=== PATIENT | female | born 1985 | race Caucasian/White ===

== ENCOUNTER 2016-08-03 08:05 | Inpatient (IN) | payer BC ==
[2016-07-22 14:16] VITALS: BMI 42.0
[2016-07-22 14:24] LABS: BASO % 0.1 %; BASO ABS # 0.01 K/uL (0-0.2); COMPLETE YES; EOS % 2.2 %; HEMATOCRIT 38.5 % (37-47); LYMPH % 31.1 %; LYMPH ABS # 2.11 K/uL (1.2-3.4); MEAN CELL VOLUME 89.7 fL (80-100); MEAN CORPUSCULAR HEMOGLOBIN 31.7 pg (25-34); MEAN CORPUSCULAR HGB CONC 35.3 g/dl (32-36); MEAN PLATELET VOLUME 9.4 fL (7.4-10.4); MONO % 5.7 %; NEUT % 60.9 %; PLATELET COUNT 253 K/uL (130-400); RED BLOOD COUNT 4.29 M/uL (4.2-5.4); WHITE BLOOD COUNT 6.79 K/uL (4.8-10.8)
[2016-07-22 14:50] LABS: BUN/CREATININE RATIO 10.8 (10-20); CALCIUM 8.9 mg/dl (8.5-10.1); CREATININE 0.83 mg/dl (0.60-1.20); POTASSIUM 3.8 mmol/L (3.5-5.1)
--- NOTE | 2016-07-22 14:53 | PAT Medication Instructions ---
Service Date Jul 22, 2016. Current Home Medication List Alprazolam (Xanax), 0.5 MG PO Q8H PRN for Anxiety Escitalopram Oxalate (Lexapro), 15 MG PO QAM Oxycodone/Acetaminophen 10MG/325MG (Percocet 10MG/325MG), 1 TAB PO q4-6 PRN for Pain Oxymorphone Hcl (Opana Er (Crush Resistant), 40 MG PO Q12 [Headache Medicine ] Medication Instructions For Your Scheduled Surgery [Headache Medicine]- Please call PAT department with name and dose of medication. - Take the following medications the morning of surgery with a sip of water: Oxymorphone Hcl (Opana Er (Crush Resistant), 40 MG PO Q12 Oxycodone/Acetaminophen 10MG/325MG (Percocet 10MG/325MG), 1 TAB PO q4-6 PRN for Pain Escitalopram Oxalate (Lexapro), 15 MG PO QAM Alprazolam (Xanax), 0.5 MG PO Q8H PRN for Anxiety - Take the following medications as scheduled the night before surgery: Oxymorphone Hcl (Opana Er (Crush Resistant), 40 MG PO Q12 Oxycodone/Acetaminophen 10MG/325MG (Percocet 10MG/325MG), 1 TAB PO q4-6 PRN for Pain Alprazolam (Xanax), 0.5 MG PO Q8H PRN for Anxiety If you have any questions please call us at [phone] (Tanvi Woodruff PA-C) or [phone] or [phone]
[2016-07-22 15:55] LABS: URINE APPEARANCE CLEAR (CLEAR); URINE BILIRUBIN NEG (NEG); URINE COLOR YELLOW; URINE NITRITE NEG (NEG); URINE SPECIFIC GRAVITY 1.007 (1.000-1.030); UROBILINOGEN NEG (NEG)
[2016-07-22 16:02] LABS: MANUAL MICROSCOPIC REQUIRED? NO; REVIEW REQ? NO
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
[~2016-08-03] VITALS: Ht 162.6 cm; Wt 111.0 kg
[2016-08-03] VITALS (9 sets, daily range): BP systolic 91–126; BP diastolic 59–85; PULSE 55–76; TEMP 36.4–36.8; O2SAT 91–98; Ht 162.6 cm; Wt 111.0 kg
--- NOTE | 2016-08-03 07:19 | History & Physical Bridge Note ---
H&P Re-Evaluation Bridge Note: I have examined the patient, reviewed the History & Physical and in the interval since the performance of the History & Physical I have noted the following changes of clinical significance: No changes noted
[~2016-08-03 08:05] MED LIST: ALPR-411 PO; CEFAZOLIN 2000 MG/60 ML D5W IV SCH; ESCI1TAB10 PO; HEADACHE MEDICINE; LACTATED RINGER'S 1000ML 1,000 ML IV SCH; OXYC-106 PO; OXYM1TAB PO
[2016-08-03] MEDS ORDERED: SUMA100T16 PO (08:45)
[2016-08-03] MEDS ORDERED: ONDANSETRON INJ 2 MG/ML 2 ML VIAL ONE (08:53)
[2016-08-03] MEDS ORDERED: MIDAZOLAM HCL 1 MG/ML 2ML VIAL ONE (08:53)
[2016-08-03] MEDS ORDERED: HYDROmorphone INJ 2 MG/ML SYR/VIAL ONE (08:53)
[2016-08-03] MEDS ORDERED: ROCURONIUM BROMIDE 10 MG/ML 5 ML VIAL ONE (08:53)
[2016-08-03] MEDS ORDERED: DEXAMETHASONE SOD INJ 4 MG/ML VIAL ONE (08:53)
[2016-08-03] MEDS ORDERED: FENTANYL CITRATE INJ 50 MCG/1 ML 2 ML VIAL ONE (08:53)
[2016-08-03] MEDS ORDERED: SODIUM CHLORIDE 0.9% INJ 10 ML VIAL ONE (08:56)
[2016-08-03 08:58] LABS: PREG INTERNAL NEGATIVE QC NEG CLEAR BACKGROUND; PREG INTERNAL POSITIVE QC POS CONTROL LINE
[2016-08-03] MEDS ORDERED: CEFAZOLIN IV 2,000 MG/60 ML D5W IV ONE (09:17)
[2016-08-03] MEDS ORDERED: PHENYLEPHRINE 100MCG/ML 5ML SYR ONE (09:28)
[2016-08-03] MEDS ORDERED: BUPIVACAINE/EPINEPHRINE 0.5% MPF 1:200,000 30 ML VIAL ONE (10:06)
[2016-08-03] MEDS ORDERED: BACITRACIN 50000 UNIT VIAL ONE (10:06)
[2016-08-03] MEDS ORDERED: SODIUM CHLORIDE 0.9% PF 50 ML VIAL ONE (10:06)
[2016-08-03] MEDS ORDERED: CLINDAMYCIN 600 MG/54 ML D5W IV ONE (10:06)
[2016-08-03] MEDS ORDERED: NURSING VERBAL MED ORDER ONE (10:15)
[2016-08-03] MEDS ORDERED: EpHEDrine SULFATE INJ 50 MG/ML AMP IV PRN (11:00)
[2016-08-03] MEDS ORDERED: HYDROmorphone INJ 1 MG/ML SYR IV PRN (11:00)
[2016-08-03] MEDS ORDERED: PROMETHAZINE HCL INJ 6.25 MG in SODIUM CHLORIDE 0.9% 50ML 50 ML IV PRN (11:00)
[2016-08-03] MEDS ORDERED: ONDANSETRON INJ 2 MG/ML 2 ML VIAL IV PRN (11:00)
[2016-08-03] MEDS ORDERED: ATROPINE SULFATE 0.1 MG/ML 5ML SYR IV PRN (11:00)
[2016-08-03] MEDS ORDERED: FLOSEAL HEMOSTATIC MATRIX 10ML TOP ONE (12:01)
[2016-08-03] MEDS ORDERED: SODIUM CHLORIDE 0.9% 1000ML 1,000 ML IV SCH (12:08)
--- NOTE | 2016-08-03 12:08 | [facility] Post Operative Brief Note ---
Immediate Operative Summary Operative Date Aug 03, 2016. Pre-Operative Diagnosis Disc herniation L5-S1, modic changes of the endplated and disc deterioration L4-L5 Post-Operative Diagnosis same as preop Procedure(s) Performed L4-S1 Decompression, posterior instrumentation, use of bone morphogenetic protein and Delfina allograft; L5-S1 application of interbody cage Surgeon Dr. Galarza Social Media Specialist Surgeon(s) Sue Bee PA-C Estimated Blood Loss 100 ml Findings stenosis Specimens none
[2016-08-03] MEDS ORDERED: hydrOXYzine HCL 25 MG TAB PO PRN (12:15)
[2016-08-03] MEDS ORDERED: METOCLOPRAMIDE HCL INJ 5 MG/ML 2 ML VIAL IV PRN (12:15)
[2016-08-03] MEDS ORDERED: FAMOTIDINE 20 MG TAB PO PRN (12:15)
[2016-08-03] MEDS ORDERED: NALOXONE HCL 0.4 MG/1 ML VIAL/CARP IV PRN ×2 (12:15)
[2016-08-03] MEDS ORDERED: DO NOT ADMINISTER FLU VACCINE PRN ×3 (12:15)
[2016-08-03] MEDS ORDERED: SUMATRIPTAN SUCC TAB 100 MG TAB PO PRN (12:15)
[2016-08-03] MEDS ORDERED: SOD PHOSPHATE/SOD BIPHOSPHATE ENEMA 132 ML BTL PR PRN (12:15)
[2016-08-03] MEDS ORDERED: ALUMINUM/MAGNESIUM SUSP 30 ML UDC PO PRN (12:15)
[2016-08-03] MEDS ORDERED: BISACODYL 10 MG SUPP PR PRN (12:15)
[2016-08-03] MEDS ORDERED: LORAZEPAM INJ 0.5 MG in SYRINGE 0.75 ML IV PRN (12:15)
[2016-08-03] MEDS ORDERED: ACETAMINOPHEN IV 100 ML IV PRN (12:15)
[2016-08-03] MEDS ORDERED: ACETAMINOPHEN 500 MG TAB PO PRN (12:15)
[2016-08-03] MEDS ORDERED: MAGNESIUM HYDROXIDE SUSP 30 ML UDC PO PRN (12:15)
[2016-08-03] MEDS ORDERED: LORAZEPAM 0.5 MG TAB PO PRN (12:15)
[2016-08-03] MEDS ORDERED: DO NOT ADMINISTER PNEUMOCOCCAL VACCINE PRN ×2 (12:15)
[2016-08-03] MEDS ORDERED: PROMETHAZINE HCL INJ 12.5 MG in SODIUM CHLORIDE 0.9% 50ML 50 ML IV PRN (12:15)
[2016-08-03] MEDS: HYDROmorphone HCL 0.5MG/ML 50 ML CASSETTE IV PRN ×4 (12:42→22:59)
[2016-08-03] MEDS: FENTANYL CITRATE INJ 50 MCG/1 ML 2 ML VIAL IV PRN ×2 (12:48→12:53)
--- NOTE | 2016-08-03 12:49 | OPERATIVE REPORT ---
DATE OF OPERATION: 08/03/2016 PREOPERATIVE DIAGNOSIS: Spinal stenosis, herniated nucleus pulposus L4-5, L5-S1. POSTOPERATIVE DIAGNOSIS: Same. PROCEDURES PERFORMED: 1. Lumbar decompression, medial facetectomies, foraminotomies L4-5, L5-S1. 2. Posterior spinal fusion L4-5, L5-S1. 3. Placement of posterior segmental instrumentation using Orthros rods and screws L4-5, L5-S1. 4. Interbody fusion L5-S1. 5. Placement of PEEK cage 12 x 26 mm at L5-S1. 6. Placement of locally harvested morcellized autograft in posterior gutters. 7. Placement of Infuse collagen sponge combined with Mastergraft in posterior gutters and Delfina bone grafting in the interbody space. SURGEON: Dr. Sameer Galarza. OSTOMY CARE NURSE: Sue Bee PA-C. Due to the complex nature of the procedure, the entire surgery was performed with the assistant federal public defender of BELIA Roman. The captain assistant, under direct supervision, was involved in the actual performance of all aspects of the surgical procedure including hemostasis, tissue retraction and incision, instrument management, patient positioning, and wound closure. ANESTHESIA: General. DISPOSITION: The patient awakened and taken to PACU in stable condition. HISTORY OF PATIENT'S PROBLEMS: This is a 30-year-old female that presents with above-mentioned diagnosis. After failing an extensive course of nonoperative care, she elected to undergo the above-mentioned procedure. Risks, benefits, pros, cons, and alternatives were outlined in detail preoperatively. DESCRIPTION OF PROCEDURE: The patient was met with preoperatively, case discussed and all questions were addressed. At that point the patient was taken back to the operative suite and after undergoing successful general intubation by department of anesthesia, was placed in prone position on the Owen table atop the Zeus frame. All bony prominences were well padded and the eyes were inspected to ensure there was no external pressure placed upon them. At this point, the lumbar spine was prepped and draped in normal sterile fashion. Sharp dissection with the assistance of Bovie cautery was performed down to and exposing the lamina and transverse processes of L4, L5 and sacral ala bilaterally. From a caudal to cephalad fashion, complete laminectomy of L5 and L4 was performed, addressing significant severe lateral recess and foraminal disease. Pedicle screws were then placed in L4, L5 and S1 levels bilaterally with the assistance of fluoroscopy and appropriate size favio provisionally placed. Through a transforaminal approach on the right, a complete discectomy of L5-S1 was performed, endplates curetted to subcortical bleeding bone and a 12 x 26 mm PEEK cage filled with Delfina bone grafting tapped into position. Rods were then compressed, locked into final position bilaterally and transverse processes of L4-L5 and sacral ala burred to subcortical bone. Infuse collagen sponge combined with Mastergraft and locally harvested morcellized autograft was placed in the posterior gutters. A 7 flat PHU drain was inserted. Incision was closed with 1-0 Vicryl in the fascia, 2-0 Vicryl subcutaneously, 4-0 Monocryl for final skin closure. Steri-Strips and sterile dressing placed. The patient was awakened and taken to PACU in stable condition. I attest to the content of the Intraoperative Record and any orders documented therein. Any exceptio ns are noted below.
--- NOTE | 2016-08-03 12:57 | DIAGNOSTIC IMAGING REPORT ---
LUMBAR SPINE, INTRAOPERATIVE FLUOROSCOPY HISTORY: L4 S1 decompression and fusion. FLUOROSCOPY TIME: 20 seconds. FINDINGS: Intraoperative fluoroscopy was provided for the lumbar spine. 3 fluoroscopic spot images were obtained. Posterior decompression and fusion from L4 through S1 with pedicle screws and rods. IMPRESSION: Fluoroscopy provided for a L4-S1 posterior decompression and fusion. Electronically signed by: Keo Mir M.D. 08/03/2016 12:55 PM Dictated Date/Time: 08/03/2016 12:54 PM
[2016-08-03] MEDS: LACTATED RINGER'S 1000ML 1,000 ML IV SCH ×2 (14:30→20:54)
[2016-08-03] MEDS ORDERED: RXC5 PO (15:02)
--- NOTE | 2016-08-03 15:02 | Anesthesiology Progress Note ---
Anesthesia Post Op Note Date & Time Aug 03, 2016 at 15:02 Vital Signs Pain Intensity: 7.0 Vital Signs Past 12 Hours Date Time Temp Pulse Resp B/P Pulse Ox O2 Delivery O2 Flow Rate FiO2 08/03/16 14:42 36.8 58 17 100/60 95 Room Air 08/03/16 14:04 36.4 55 19 101/65 97 Nasal Cannula 4.0 08/03/16 13:40 96 Nasal Cannula 2.0 08/03/16 13:40 Nasal Cannula 2.0 08/03/16 13:20 36.2 64 14 110/62 97 Nasal Cannula 2 08/03/16 13:10 81 14 111/67 97 Nasal Cannula 2 08/03/16 13:00 66 12 112/70 92 Nasal Cannula 2 08/03/16 12:50 82 14 123/73 99 Mask 10 08/03/16 12:40 79 14 120/68 96 Mask 10 08/03/16 12:31 36.9 83 16 128/78 96 Mask 10 08/03/16 08:30 98 Room Air 08/03/16 08:27 36.6 76 20 126/85 Notes Mental Status: alert / awake / arousable, participated in evaluation Pt Amnestic to Procedure: Yes Nausea / Vomiting: adequately controlled Pain: adequately controlled Airway Patency, RR, SpO2: stable & adequate BP & HR: stable & adequate Hydration State: stable & adequate Anesthetic Complications: no major complications apparent
--- NOTE | 2016-08-03 15:03 | Discharge Instructions ---
Discharge Instructions Admission Reason for Admission: Lumbar Spinal Stenosis Discharge Discharge Diagnosis / Problem: stenosis Discharge Goals Goal(s): Improve function Activity Recommendations Activity Limitations: per Instructions/Follow-up section . Instructions / Follow-Up Instructions / Follow-Up ACTIVITY RECOMMENDATIONS: SELF CARE INSTRUCTIONS AFTER THORACIC/LUMBAR FUSIONS 1. You may walk to your tolerance. It is good exercise for your legs and back. Expect some back and intermittent leg aches and pains. 2. You may perform "counter-top" level activities (make a sandwich, kerri with a project, etc.). 3. No bending or lifting of more than 10 pounds or back twisting of any nature (roll like a log when turning in bed). 4. You may ride in a car for 20-30 minutes at a time. No driving until after your first visit with your doctor. 5. Frequent changes of position and restricting sitting to 30 minutes at a time will help limit the amount of back spasms and stiffness you may experience. 6. You may discontinue the use of ambulatory aids (cane, crutches, etc.) once your strength and confidence allow. 7. You may crutching contractor the shower and let water strike your incision when you arrive home at least once daily. Do not take a tub bath, sit in a hot tub or go into a swimming pool until after your first recheck in the office. SPECIAL CARE INSTRUCTIONS: VERY IMPORTANT TO READ AND REVIEW A. Your surgical incision has been closed with a cosmetic suture under the skin that will dissolve in about 6 weeks. In 14 days, you can use a pair of clean scissors and cut the suture that is left outside of the skin at the ends of your incision. 1. The small skin tapes can be removed 7 days after surgery if they have not fallen off by that point. 2. You may keep the wound open to air as much as possible to promote healing after post-op day number 5 unless told otherwise by your doctor. 3. If you think the wound looks like it is becoming infected (redness or worsening drainage) and/or you are experiencing fever, chill or worsening back pain and muscle spasms, contact the office so that we may evaluate you as soon as possible. B. Complications are uncommon, but please contact us if you have any signs or symptoms of: 1. wound infection (fever higher than 102.5 degrees F, redness, separation of wound, drainage, or increasing pain from the incision) 2. blood clots in legs (pain, swelling, redness and warmth in legs) 3. urinary tract infection (fever higher than 102.5 degrees F, burning upon urination or increased frequency of urination) 4. nerve problems (inability to walk on your toes or heels, numbness, loss of bowel or bladder control) 5. any other symptoms that concern you C. Please call the office at if you have any concerns or questions about your operation or recovery. D. No smoking! Smoking drastically decreases the chance of a solid fusion. E. Do not take any anti-inflammatory medications (Indocin, Advil, Motrin, Aspirin, Naprosyn, etc.) as these may inhibit the chance of a solid fusion. Tylenol is okay to take for pain. MANAGING PAIN AFTER SPINAL SURGERY 1. Narcotic medication is intended for short-term use and will be provided for surgical pain. Surgical pain usually lasts for a period of 4-6 weeks. Narcotic medication includes Percocet, Vicodin, Darvocet, Tylenol #3 or Lortab. 2. Longer-term pain is more appropriately treated with non-narcotic medication such as Tylenol ES. 3. Muscle spasm is not appropriately treated with narcotics. Muscle relaxers such as Soma, Flexeril or Skelaxin can be used along with Tylenol ES. 4. Remember that we all live with some "aches and pains". This is not unusual or uncommon after an injury or as we get older. a. Back pain is expected and may include muscle spasms for 4 to 6 weeks after surgery. The pain should gradually improve. If the pain worsens for no apparent reason, please contact the office. b. Intermittent leg pain may also be experienced and should not be concerned about unless it worsens for no apparent reason. If so, please contact the office. 5. We will provide appropriate medication within the normal guidelines of their prescribed use. We will also be very cautious and aware of potential abuse and extended duration of patients' medication needs. a. Pain medications are for your comfort and to assist with sleep and rest so that the tissue can heal. They are not provided in order to return to normal activity and should not be used through the day. To do so or worsening pain at night can result from ongoing tissue damage and development of tolerance to the prescribed medicine. 6. Please allow 2-3 days to process refills. Prescriptions will not be mailed but must be picked up at the office. FOLLOW UP VISIT: Keep your scheduled follow-up appointment. Any questions, please call the office at . Current Hospital Diet Patient's current hospital diet: Regular Diet Discharge Diet Recommended Diet: Regular Diet Procedures Procedures Performed: L4-S1 Decompression, posterior instrumentation, use of bone morphogenetic protein and Delfina allograft; L5-S1 application of interbody cage Pending Studies Studies pending at discharge: no Medical Emergencies . Who to Call and When: Medical Emergencies: If at any time you feel your situation is an emergency, please call 911 immediately. . Non-Emergent Contact Non-Emergency issues call your: Primary Care Provider . "Provider Documentation" section prepared by Sameer Galarza. VTE Core Measure Inpt VTE Proph given/why not?: Jose Ramos, SCD's
[2016-08-03] MEDS: CLINDAMYCIN IV 600 MG in DEXTROSE 5% ADD-VANTAGE 50ML 50 ML IV SCH (18:25)
[2016-08-03] MEDS: DEXAMETHASONE INJ 6 MG in SYRINGE 0 ML IV SCH (18:25)
[2016-08-03] MEDS: OXYMORPHONE PO SCH (20:53)
[2016-08-03] MEDS: DOCUSATE SODIUM/SENNA 50/8.6MG TAB PO SCH (20:53)
[2016-08-04] MEDS: LACTATED RINGER'S 1000ML 1,000 ML IV SCH (01:47)
[2016-08-04] MEDS: CLINDAMYCIN IV 600 MG in DEXTROSE 5% ADD-VANTAGE 50ML 50 ML IV SCH (01:47)
[2016-08-04] MEDS: DEXAMETHASONE INJ 6 MG in SYRINGE 0 ML IV SCH ×2 (01:48→15:58)
[2016-08-04 04:01] VITALS: BP 112/61; PULSE 80; TEMP 37.1; O2SAT 95
[2016-08-04] MEDS ORDERED: NURSING VERBAL MED ORDER ONE (05:45)
[2016-08-04] MEDS ORDERED: HYDROmorphone INJ 0.5 MG/0.5 ML SYR IV PRN (06:00)
[2016-08-04] MEDS ORDERED: DC PCA SCH (06:00)
[2016-08-04 06:16] LABS: COMPLETE YES; HEMATOCRIT 34.4 % (37-47); IG% 0.2 %; LYMPH % 4.1 %; MEAN CELL VOLUME 88.9 fL (80-100); MEAN CORPUSCULAR HEMOGLOBIN 30.7 pg (25-34); MEAN CORPUSCULAR HGB CONC 34.6 g/dl (32-36); MEAN PLATELET VOLUME 9.1 fL (7.4-10.4); MONO % 2.8 %; NEUT % 92.9 %; PLATELET COUNT 273 K/uL (130-400); RED BLOOD COUNT 3.87 M/uL (4.2-5.4); WHITE BLOOD COUNT 14.55 K/uL (4.8-10.8)
[2016-08-04 06:49] LABS: BUN/CREATININE RATIO 10.7 (10-20); CALCIUM 8.6 mg/dl (8.5-10.1); CREATININE 0.78 mg/dl (0.60-1.20)
[2016-08-04 07:00] VITALS: BP 104/63; PULSE 79; TEMP 36.9; O2SAT 96
--- NOTE | 2016-08-04 08:43 | PROGRESS NOTE ---
DATE: 08/04/2016 DATE: 08/04/2016. SUBJECTIVE: She is postoperative day 1 lumbar decompression and fusion. Complaint this morning she seemed to have some flushing throat evening hours. No rash. No complaints this morning. This seems to have resolved. She also complains of lower back pain. No radicular leg pain. She has been up and ambulatory to the restroom without difficulty. PHU drain output last shift was 95 mL. H\T\H this morning are 11.9 and 34.4 respectively. Again, she has no other complaints. PHYSICAL EXAMINATION: VITAL SIGNS: Stable. Afebrile. GENERAL: She is in no obvious distress. LOWER EXTREMITIES: Calves are soft and nontender. Neurovascularly intact. Lumbar dressing is clean, dry and intact. ASSESSMENT: Postoperative day 1 lumbar decompression and fusion. PLAN: Will start physical therapy today. Discontinue FOOD WRITER and start oral pain medication. DVT prophylaxis with TEDs and SCDs. Maintain PHU drain and dressing. Anticipate discharge home 48 hours from now.
[2016-08-04] MEDS: OXYMORPHONE PO SCH ×2 (08:52→20:58)
[2016-08-04] MEDS: ESCITALOPRAM OXALATE 10 MG TAB PO SCH (08:52)
[2016-08-04 11:06] VITALS: BP 119/77; PULSE 92; TEMP 37.1; O2SAT 93
[2016-08-04 15:17] VITALS: BP 120/73; PULSE 91; TEMP 36.7; O2SAT 94
[2016-08-04] MEDS: OXYCODONE HCL IR 5 MG TAB (IMMEDIATE RELEASE) PO PRN (16:06)
[2016-08-04] MEDS: DOCUSATE SODIUM/SENNA 50/8.6MG TAB PO SCH (20:58)
[2016-08-04 23:40] VITALS: BP 125/69; PULSE 72; TEMP 36.8; O2SAT 92
[2016-08-05] MEDS: POLYETHYLENE (MIRALAX) 17 GM PACK PO SCH ×4 (05:31→23:19)
[2016-08-05 06:01] VITALS: BP 114/73; PULSE 65; TEMP 36.8; O2SAT 97
[2016-08-05] MEDS: ONDANSETRON INJ 2 MG/ML 2 ML VIAL IV PRN (06:36)
[2016-08-05] MEDS: ESCITALOPRAM OXALATE 10 MG TAB PO SCH (07:37)
[2016-08-05] MEDS: OXYMORPHONE PO SCH ×2 (07:37→20:47)
[2016-08-05] MEDS: OXYCODONE HCL IR 5 MG TAB (IMMEDIATE RELEASE) PO PRN ×2 (14:04→23:56)
--- NOTE | 2016-08-05 14:59 | PROGRESS NOTE ---
DATE: 08/05/2016 DATE: 08/05/2016. SUBJECTIVE: Postop day 2. Back pain is controlled. Leg pain improved. Vital signs stable. T-max 36.8. PHU drained 95 mL. Hematocrit this a.m. is 34.4. OBJECTIVE: On exam she has good strength to testing. Pain controlled. She is ambulating halls. ASSESSMENT: Status post lumbar decompression and fusion. PLAN: At this time, will maintain PHU drain another 24 hours and anticipate home tomorrow.
[2016-08-05 15:02] VITALS: BP 104/56; PULSE 79; TEMP 37.2; O2SAT 95
[2016-08-05] MEDS: DOCUSATE SODIUM/SENNA 50/8.6MG TAB PO SCH (20:46)
[2016-08-05 23:30] VITALS: BP 110/70; PULSE 76; TEMP 36.9; O2SAT 94
[2016-08-06] MEDS: POLYETHYLENE (MIRALAX) 17 GM PACK PO SCH (05:32)
[2016-08-06 06:05] VITALS: BP 105/70; PULSE 76; TEMP 36.8; O2SAT 97
[2016-08-06] MEDS: OXYCODONE HCL IR 5 MG TAB (IMMEDIATE RELEASE) PO PRN ×2 (06:29→11:51)
[2016-08-06] MEDS: ONDANSETRON INJ 2 MG/ML 2 ML VIAL IV PRN (07:29)
[2016-08-06] MEDS: OXYMORPHONE PO SCH (09:42)
[2016-08-06] MEDS: ESCITALOPRAM OXALATE 10 MG TAB PO SCH (09:42)
--- NOTE | 2016-08-06 11:32 | DISCHARGE SUMMARY ---
DATE OF DISCHARGE: 08/06/2016. PRINCIPAL DIAGNOSIS: Spinal stenosis. HOSPITAL COURSE FOLLOWS: On 08/03/2016, patient underwent lumbar decompression and fusion, tolerated this well and taken to the orthopedic floor postoperatively. Postop day #1, she was up and ambulatory, progressed to postop day 2. Postop day #3, PHU drain was down to 20 mL, pain well controlled, subsequently discharged home. Discharge orders and instructions can be found on the chart for further review.
[2016-08-06 11:40] VITALS: BP 105/70; PULSE 76; TEMP 36.8; O2SAT 97
== END 2016-08-06 14:15 | disposition home or self-care (01) | DRG 460 ==
LOC: ENRESERVTM → ENRESERVDT → C.ACU 08:05 → C.3E 12:11
PROVIDERS: ADMIT Orthopaedic Surgery Orthopaedic Surgery of the Spine; ATTEND Orthopaedic Surgery Orthopaedic Surgery of the Spine
PROC: 0SG0071 Fusion of Lumbar Vertebral Joint with Autologous Tissue Substitute, Posterior Approach, Posterior Column, Open Approach (ICD-10-PCS; principal; 2016-08-03 10:00)
PROC: 0SG30AJ Fusion of Lumbosacral Joint with Interbody Fusion Device, Posterior Approach, Anterior Column, Open Approach (ICD-10-PCS; principal; 2016-08-03 10:00)
PROC: 0SG3071 Fusion of Lumbosacral Joint with Autologous Tissue Substitute, Posterior Approach, Posterior Column, Open Approach (ICD-10-PCS; principal; 2016-08-03 10:00)
PROC: 0ST40ZZ Resection of Lumbosacral Disc, Open Approach (ICD-10-PCS; principal; 2016-08-03 10:00)
PROC: 3E0V0GB Introduction of Recombinant Bone Morphogenetic Protein into Bones, Open Approach (ICD-10-PCS; principal; 2016-08-03 10:00)
DX: M51.27 Other intervertebral disc displacement, lumbosacral region (principal); M51.36 Other intervertebral disc degeneration, lumbar region; M48.06 Spinal stenosis, lumbar region; M48.07 Spinal stenosis, lumbosacral region